=== PATIENT | female | born 1955 | race Caucasian/White ===

== ENCOUNTER 2017-07-28 11:48 | Emergency (ER) | payer SELFPAY ==
[2017-07-28] MEDS ORDERED: IOHEXOL 350 MG/ML 10 ML VIAL (for RAD DIAG) IVCONTRAST ONE (11:49)
[2017-07-28 12:02] VITALS: BP 125/80; PULSE 83; RESP 22; TEMP 97.6; O2SAT 95
[2017-07-28] MEDS ORDERED: RESP: ALBUTEROL 2.5 MG/IPRATROPIUM 0.5 MG NEB (SCH) INH ONE (12:15)
[2017-07-28 12:25] LABS: AUTOMATED NEUTROPHIL # 3.9 TH/MM3 (1.8-7.7); BASOPHIL # 0.1 TH/MM3 (0-0.2); BASOPHIL % 1.1 % (0.0-2.0); EOSINOPHIL # 0.2 TH/MM3 (0-0.4); EOSINOPHIL % 2.5 % (0.0-4.0); HEMATOCRIT 51.6 % (35.0-46.0); HEMOGLOBIN 17.7 GM/DL (11.6-15.3); LYMPH % 28.7 % (9.0-44.0); LYMPHOCYTE # 1.8 TH/MM3 (1.0-4.8); MEAN CELL VOLUME 101.3 FL (80.0-100.0); MEAN CORPUSCULAR HEMOGLOBIN 34.9 PG (27.0-34.0); MEAN CORPUSCULAR HGB CONC 34.4 % (32.0-36.0); MEAN PLATELET VOLUME 8.9 FL (7.0-11.0); MONO % 5.3 % (0.0-8.0); MONOCYTE # 0.3 TH/MM3 (0-0.9); NEUT % 62.4 % (16.0-70.0); PLATELET COUNT 197 TH/MM3 (150-450); RED BLOOD COUNT 5.09 MIL/MM3 (4.00-5.30); RED CELL DISTRIBUTION WIDTH 14.3 % (11.6-17.2); WHITE BLOOD COUNT 6.3 TH/MM3 (4.0-11.0)
[2017-07-28] MEDS ORDERED: methylPREDNISolone SOD SUCC 125 MG/2 ML VIAL IV PUSH ONE (12:30)
--- NOTE | 2017-07-28 12:32 | PD ---
HPI Chief Complaint: Respiratory Symptoms Time Seen by Provider: 12:00 Travel History International Travel<30 days: No Contact w/Intl Traveler<30days: No Traveled to known affect area: No History of Present Illness HPI 61-year-old female that presents to the ED for evaluation of shortness of breath for 2-3 months. Per patient she has not seen anybody for this. Per patient she has a hard time taking deep breath. Per patient go more severe today which is what prompted evaluation. Denies any medical history. She takes no medications currently. She does have a history of alcoholism and continues to drink. She denies any chest pain but states having some heartburn. She also states that she has a rash to her arms and legs that she attributes to bedbugs in the area where she lives. She does have significant rash noted but appears to be high be on the back, front and legs and arms. She does appear to be picking at her rashes and she has scratch dorsey all over her forearms and legs. She denies any history of COPD or asthma. She states that she does smoke. No history of medical issues. She does have a significant history of depression and psychiatric disease. Denies any chest pain. No abdominal pain. Nausea vomiting or diarrhea. No fevers chills or sweats. No cough. PFSH Past Medical History Anxiety: Yes Depression: Yes Diminished Hearing: No Psychiatric: Yes Past Surgical History Other Surgery: Yes (left arm sx) Social History Alcohol Use: Yes (4 pack of beer daily) Tobacco Use: Yes (1PPD) Substance Use: No (HX ETOH) Allergies-Medications (Allergen,Severity, Reaction): Coded Allergies: No Known Allergies (Unverified Allergy, Unknown, 07/28/17) Reported Meds & Prescriptions Reported Meds & Active Scripts Active Prednisone 20 Mg Tab 20 Mg PO BID 5 Days Proair Hfa 8.5 GM Inh (Albuterol Sulfate) 90 Mcg/Act Aer 2 Puff INH Q4-6H PRN 108 mcg/actuation Review of Systems Except as stated in HPI: all other systems reviewed are Neg Physical Exam Narrative GENERAL: Well-nourished, well-developed patient in no apparent distress. SKIN: Warm and dry. Patient has a hive looking rash on the back, flank, arms and legs. See with female nurse present at all times. Patient does have multiple scratch dorsey and abrasions from her picking at her skin more noticeable on the forearms bilaterally. HEAD: Atraumatic. Normocephalic. EYES: Pupils equal and round reactive to light and accommodation. No scleral icterus. No injection or drainage. ENT: No nasal bleeding or discharge. Mucous membranes pink and moist. TMs are clear with no sign of infection or perforation. No mastoid tenderness. Ear canals are intact bilaterally. No lymphadenopathy. Nostril mucosa is red and moist with clear mucus noted. No sinus tenderness to palpation noted. Tonsils are not enlarged or swollen. No ulvua Deviation. Tongue is midline. NECK: Trachea midline. No JVD. No meningeal signs noted CARDIOVASCULAR: Regular rate and rhythm. No murmurs, S3, S4. RESPIRATORY: No accessory muscle use. Clear to auscultation. Breath sounds equal bilaterally. GASTROINTESTINAL: Abdomen soft, non-tender, nondistended. Hepatic and splenic margins not palpable. Full range of motion of the upper and lower extremities bilaterally. 2+ pulses bilaterally. MUSCULOSKELETAL: Extremities without clubbing, cyanosis, or edema. No obvious deformities. Full range of motion of the upper and lower extremities bilaterally. 2+ pulses bilaterally. NEUROLOGICAL: Awake and alert. No obvious cranial nerve deficits. Motor grossly within normal limits. Five out of 5 muscle strength in the arms and legs. Normal speech. PSYCHIATRIC: Appropriate mood and affect; insight and judgment normal. Data Data Last Documented VS Vital Signs Date Time Temp Pulse Resp B/P (MAP) Pulse Ox O2 Delivery O2 Flow Rate FiO2 07/28/17 15:35 98.4 102 20 133/92 (106) 95 Room Air Orders Orders Complete Blood Count With Diff (07/28/17 12:08) Comprehensive Metabolic Panel (07/28/17 12:08) Ckmb (Isoenzyme) Profile (07/28/17 12:08) Troponin I (07/28/17 12:08) B-Type Natriuretic Peptide (07/28/17 12:08) Prothrombin Time / Inr (Pt) (07/28/17 12:08) Act Partial Throm Time (Ptt) (07/28/17 12:08) D-Dimer (07/28/17 12:08) Magnesium (Mg) (07/28/17 12:08) Thyroid Stimulating Hormone (07/28/17 12:08) Chest, Single Ap (07/28/17 12:08) Iv Access Insert/Monitor (07/28/17 12:08) Ecg Monitoring (07/28/17 12:08) Oximetry (07/28/17 12:08) Albuterol-Ipratropium Neb (Duoneb Neb) (07/28/17 12:15) Methylprednisolone So Succ Inj (Solumedr (07/28/17 12:30) Ct Pulmonary Angiogram (07/28/17 ) Ed Discharge Order (07/28/17 15:36) Labs Laboratory Tests Test 07/28/17 12:15 White Blood Count 6.3 TH/MM3 Red Blood Count 5.09 MIL/MM3 Hemoglobin 17.7 GM/DL Hematocrit 51.6 % Mean Corpuscular Volume 101.3 FL Mean Corpuscular Hemoglobin 34.9 PG Mean Corpuscular Hemoglobin Concent 34.4 % Red Cell Distribution Width 14.3 % Platelet Count 197 TH/MM3 Mean Platelet Volume 8.9 FL Neutrophils (%) (Auto) 62.4 % Lymphocytes (%) (Auto) 28.7 % Monocytes (%) (Auto) 5.3 % Eosinophils (%) (Auto) 2.5 % Basophils (%) (Auto) 1.1 % Neutrophils # (Auto) 3.9 TH/MM3 Lymphocytes # (Auto) 1.8 TH/MM3 Monocytes # (Auto) 0.3 TH/MM3 Eosinophils # (Auto) 0.2 TH/MM3 Basophils # (Auto) 0.1 TH/MM3 CBC Comment DIFF FINAL Differential Comment Prothrombin Time 10.7 SEC Prothromb Time International Ratio 1.1 RATIO Activated Partial Thromboplast Time 24.1 SEC D-Dimer Quantitative (PE/DVT) 1.01 MG/L FEU Blood Urea Nitrogen 5 MG/DL Creatinine 0.82 MG/DL Random Glucose 84 MG/DL Total Protein 8.1 GM/DL Albumin 3.2 GM/DL Calcium Level 8.5 MG/DL Magnesium Level 1.8 MG/DL Alkaline Phosphatase 111 U/L Aspartate Amino Transf (AST/SGOT) 157 U/L Alanine Aminotransferase (ALT/SGPT) 108 U/L Total Bilirubin 0.7 MG/DL Sodium Level 138 MEQ/L Potassium Level 3.2 MEQ/L Chloride Level 99 MEQ/L Carbon Dioxide Level 27.0 MEQ/L Anion Gap 12 MEQ/L Estimat Glomerular Filtration Rate 71 ML/MIN Total Creatine Kinase 85 U/L Troponin I LESS THAN 0.02 NG/ML B-Type Natriuretic Peptide 28 PG/ML Thyroid Stimulating Hormone 3rd Gen 1.790 uIU/ML MDM Medical Decision Making Medical Screen Exam Complete: Yes Emergency Medical Condition: Yes Medical Record Reviewed: Yes Interpretation(s) CBC & BMP Diagram 07/28/17 12:15 Total Protein 8.1, Albumin 3.2 L, Calcium Level 8.5, Magnesium Level 1.8, Alkaline Phosphatase 111, Aspartate Amino Transf (AST/SGOT) 157 H, Alanine Aminotransferase (ALT/SGPT) 108 H, Total Bilirubin 0.7 Last Impressions Chest X-Ray 07/28/17 1208 Signed Impressions: Service Date/Time: Friday, July 28, 2017 12:35 - CONCLUSION: Left basilar infiltrate. Tommie Hercules MD CT Angiography 07/28/17 0000 Signed Impressions: Service Date/Time: Friday, July 28, 2017 15:03 - CONCLUSION: 1. Mild biapical emphysematous changes. Lungs are otherwise clear. 2. No pulmonary embolus. 3. Moderate size hiatal hernia Riki Mack MD coags [facility] slightly elevated troponin and CKMB negative EKG shows sinus rhythm with no sign of acute ischemia or arrhythmia read by me and attending. Differential Diagnosis Shortness of breath versus pulmonary embolism versus COPD versus asthma versus pneumonia versus acute on chronic disease versus ACS versus alcoholism Narrative Course 61-year-old female that presents to the ED for evaluation of shortness of breath. Patient was properly examined and was found to have signs and symptoms of unclear etiology. Vitals and physical exam are reassuring. Patient appears to be in no acute distress. Unclear etiology of the shortness of breath. Patient herself is not the best historian. She has no medical history other than psychiatric. Suspect that psychiatric might have something to do with this but will do some blood work and imaging to rule out any sign of acute disease. Patient was given 1 breathing treatment here to see if it will help and she was also given Solu-Medrol she does have a rash on her arms and legs that appears to be highly likely from allergic reaction. No sign of anaphylaxis however. Labs and imaging showed what appears to be positive d- dimer. CTA was done. CTA was negative for acute disease alert and some emphysematous changes. Likely this is COPD. Will treat with inhaler. Given prednisone. Prescription for azithromycin to cover for infection. Told to follow-up closely with PCP. See ED if worsening symptoms. Case discussed with my attending Dr. Villagran who evaluated the patient agrees with plan. Diagnosis Primary Impression: Reactive airway disease Qualified Codes: J45.21 - Mild intermittent asthma with (acute) exacerbation Patient Instructions: General Instructions Additional Instructions: Take medications as prescribed. Follow-up with PCP. See ED if worsening symptoms. Med/Other Pt SpecificInfo: Prescription(s) given Scripts Azithromycin (Azithromycin) 250 Mg Tab 250 MG PO DIRECTED for Infection, #6 TAB 0 Refills Take 2 tabs (500 mg) on day 1 then 1 tab daily x 4 days. Prov: Nadia Villagran MD 07/28/17 Prednisone (Prednisone) 20 Mg Tab 20 MG PO BID for 5 Days, #10 TAB 0 Refills Prov: Nadia Villagran MD 07/28/17 Albuterol 8.5 GM Inh (Proair Hfa 8.5 GM Inh) 90 Mcg/Act Aer 2 PUFF INH Q4-6H Y for SHORTNESS OF BREATH, #1 INHALER 0 Refills 108 mcg/actuation Prov: Nadia Villagran MD 07/28/17 Disposition: 01 DISCHARGE HOME Condition: Stable Scar Lamb July 28, 2017 12:32
[2017-07-28 12:33] LABS: INTERNATIONAL NORMALIZED RATIO 1.1 RATIO; PROTHROMBIN TIME - PATIENT 10.7 SEC (9.8-11.6)
[2017-07-28 12:36] LABS: D-DIMER 1.01 MG/L FEU (0.00-0.50)
--- NOTE | 2017-07-28 12:48 | RADRPT ---
EXAM DATE/TIME: 07/28/2017 12:35 [facility] COMPARISON: CHEST SINGLE AP, August 16, 2015, 18:28. INDICATIONS : Shortness of breath. MEDICAL HISTORY : None. SURGICAL HISTORY : None. ENCOUNTER: Initial ACUITY: 1 day PAIN SCORE: 0/10 LOCATION: Bilateral chest FINDINGS: A single view of the chest demonstrates left basilar infiltrate. Right lung clear. The cardiomediasti nal contours are unremarkable. Osseous structures are intact. CONCLUSION: Left basilar infiltrate. Tommie Hercules MD on July 28, 2017 at 12:46 Board Certified Radiologist. This report was verified electronically.
[2017-07-28 12:56] LABS: ALBUMIN 3.2 GM/DL (3.4-5.0); ALKALINE PHOSPHATASE 111 U/L (45-117); ALT (GPT) 108 U/L (10-53); AST (GOT) 157 U/L (15-37); BLOOD UREA NITROGEN 5 MG/DL (7-18); CALCIUM 8.5 MG/DL (8.5-10.1); CHLORIDE 99 MEQ/L (98-107); CREATININE 0.82 MG/DL (0.50-1.00); GLOMERULAR FILTRATION RATE 71 ML/MIN (>89); GLUCOSE,RANDOM 84 MG/DL (74-106); MAGNESIUM 1.8 MG/DL (1.5-2.5); SODIUM (NA) 138 MEQ/L (136-145); TOTAL BILIRUBIN ADULT 0.7 MG/DL (0.2-1.0); TOTAL PROTEIN 8.1 GM/DL (6.4-8.2); TROPONIN I LESS THAN 0.02 NG/ML (0.02-0.05)
--- NOTE | 2017-07-28 15:27 | RADRPT ---
EXAM DATE/TIME: 07/28/2017 15:03 [facility] COMPARISON: No previous studies available for comparison. INDICATIONS : Shortness of breath for three month IV CONTRAST: 75 cc Omnipaque 350 (iohexol) IV RADIATION DOSE: 8.07 CTDIvol (mGy) MEDICAL HISTORY : None SURGICAL HISTORY : None. ENCOUNTER: Initial ACUITY: 3 months PAIN SCALE: 0/10 LOCATION: chest TECHNIQUE: Volumetric scanning of the chest was performed using a pulmonary embolism protocol MIP images were re constructed. Using automated exposure control and adjustment of the mA and/or kV according to patien t size, radiation dose was kept as low as reasonably achievable to obtain optimal diagnostic quality images. DICOM format image data is available electronically for review and comparison. Follow-up recommendations for detected pulmonary nodules are based at a minimum on nodule size and pa tient risk factors according to Fleischner Society Guidelines. FINDINGS: PULMONARY ARTERIES: No filling defects are seen in the pulmonary arteries through the segmental level. LUNGS: Mild biapical emphysematous changes. Lungs are otherwise clear. PLEURAE: There is no pleural thickening or pleural effusion. MEDIASTINUM: There is good visualization of the great vessels of the middle mediastinum. No evidence of mediastin al or hilar adenopathy/mass. Moderate-sized hiatal hernia. MUSCULOSKELETAL: Within normal limits for patient age. MISCELLANEOUS: The visualized upper abdominal organs demonstrate no acute abnormality. Diminished hepatic attenuatio n suggesting fatty infiltration. CONCLUSION: 1. Mild biapical emphysematous changes. Lungs are otherwise clear. 2. No pulmonary embolus. 3. Moderate size hiatal hernia Riki Mack MD on July 28, 2017 at 15:23 Board Certified Radiologist. This report was verified electronically.
[2017-07-28 15:35] VITALS: BP 133/92; PULSE 102; RESP 20; TEMP 98.4; O2SAT 95
[2017-07-28] MEDS ORDERED: ALBUAER3 INH (15:37)
[2017-07-28] MEDS ORDERED: PRED20 PO (15:37)
[2017-07-28] MEDS ORDERED: AZIT250T3 PO (15:38)
--- NOTE | 2017-07-28 16:06 | PD ---
Data Data Last Documented VS Vital Signs Date Time Temp Pulse Resp B/P (MAP) Pulse Ox O2 Delivery O2 Flow Rate FiO2 07/28/17 16:01 07/28/17 15:35 98.4 102 20 95 Room Air Orders Orders Complete Blood Count With Diff (07/28/17 12:08) Comprehensive Metabolic Panel (07/28/17 12:08) Ckmb (Isoenzyme) Profile (07/28/17 12:08) Troponin I (07/28/17 12:08) B-Type Natriuretic Peptide (07/28/17 12:08) Prothrombin Time / Inr (Pt) (07/28/17 12:08) Act Partial Throm Time (Ptt) (07/28/17 12:08) D-Dimer (07/28/17 12:08) Magnesium (Mg) (07/28/17 12:08) Thyroid Stimulating Hormone (07/28/17 12:08) Chest, Single Ap (07/28/17 12:08) Iv Access Insert/Monitor (07/28/17 12:08) Ecg Monitoring (07/28/17 12:08) Oximetry (07/28/17 12:08) Albuterol-Ipratropium Neb (Duoneb Neb) (07/28/17 12:15) Methylprednisolone So Succ Inj (Solumedr (07/28/17 12:30) Ct Pulmonary Angiogram (07/28/17 ) Ed Discharge Order (07/28/17 15:36) Iohexol 350 Inj (Omnipaque 350 Inj) (07/28/17 11:49) Labs Laboratory Tests Test 07/28/17 12:15 White Blood Count 6.3 TH/MM3 Red Blood Count 5.09 MIL/MM3 Hemoglobin 17.7 GM/DL Hematocrit 51.6 % Mean Corpuscular Volume 101.3 FL Mean Corpuscular Hemoglobin 34.9 PG Mean Corpuscular Hemoglobin Concent 34.4 % Red Cell Distribution Width 14.3 % Platelet Count 197 TH/MM3 Mean Platelet Volume 8.9 FL Neutrophils (%) (Auto) 62.4 % Lymphocytes (%) (Auto) 28.7 % Monocytes (%) (Auto) 5.3 % Eosinophils (%) (Auto) 2.5 % Basophils (%) (Auto) 1.1 % Neutrophils # (Auto) 3.9 TH/MM3 Lymphocytes # (Auto) 1.8 TH/MM3 Monocytes # (Auto) 0.3 TH/MM3 Eosinophils # (Auto) 0.2 TH/MM3 Basophils # (Auto) 0.1 TH/MM3 CBC Comment DIFF FINAL Differential Comment Prothrombin Time 10.7 SEC Prothromb Time International Ratio 1.1 RATIO Activated Partial Thromboplast Time 24.1 SEC D-Dimer Quantitative (PE/DVT) 1.01 MG/L FEU Blood Urea Nitrogen 5 MG/DL Creatinine 0.82 MG/DL Random Glucose 84 MG/DL Total Protein 8.1 GM/DL Albumin 3.2 GM/DL Calcium Level 8.5 MG/DL Magnesium Level 1.8 MG/DL Alkaline Phosphatase 111 U/L Aspartate Amino Transf (AST/SGOT) 157 U/L Alanine Aminotransferase (ALT/SGPT) 108 U/L Total Bilirubin 0.7 MG/DL Sodium Level 138 MEQ/L Potassium Level 3.2 MEQ/L Chloride Level 99 MEQ/L Carbon Dioxide Level 27.0 MEQ/L Anion Gap 12 MEQ/L Estimat Glomerular Filtration Rate 71 ML/MIN Total Creatine Kinase 85 U/L Troponin I LESS THAN 0.02 NG/ML B-Type Natriuretic Peptide 28 PG/ML Thyroid Stimulating Hormone 3rd Gen 1.790 uIU/ML MDM Supervised Visit with MINDI: Yes Narrative Course The history, exam, and medical decision-making in the associated midlevel provider note were completed with my assistance. I reviewed and agree with the findings presented. I attest that I had a [id number] encounter with the patient on the same day, and personally performed and documented my assessment and findings in the medical record. *My assessment and Findings: This is a 61-year-old female who presents to the emergency department with shortness of breath it has been going on for 2-3 months. She had some wheezing on exam initially. Chest x-ray demonstrates some hyperinflation and CD is suggestive of emphysema. I suspect this is the etiology of the patient's symptoms. She will be discharged on prednisone and was counseled on smoking cessation. Diagnosis Primary Impression: Reactive airway disease Qualified Codes: J45.21 - Mild intermittent asthma with (acute) exacerbation Referrals: Primary Care Physician call for appointment Patient Instructions: General Instructions, Reactive Airways Disease (ED) Departure Forms: Tests/Procedures Additional Instruction: Take medications as prescribed. Follow-up with PCP. See ED if worsening symptoms. Scripts Azithromycin (Azithromycin) 250 Mg Tab 250 MG PO DIRECTED for Infection, #6 TAB 0 Refills Take 2 tabs (500 mg) on day 1 then 1 tab daily x 4 days. Prov: Nadia Villagran MD 07/28/17 Prednisone (Prednisone) 20 Mg Tab 20 MG PO BID for 5 Days, #10 TAB 0 Refills Prov: Nadia Villagran MD 07/28/17 Albuterol 8.5 GM Inh (Proair Hfa 8.5 GM Inh) 90 Mcg/Act Aer 2 PUFF INH Q4-6H Y for SHORTNESS OF BREATH, #1 INHALER 0 Refills 108 mcg/actuation Prov: Nadia Villagran MD 07/28/17 Disposition: 01 DISCHARGE HOME Condition: Stable Nadia Villagran MD July 28, 2017 16:06
== END 2017-07-28 16:06 | disposition home or self-care (01) ==
LOC: NEPE 11:48
DX: J45.21 Mild intermittent asthma with (acute) exacerbation (principal); K44.9 Diaphragmatic hernia without obstruction or gangrene; F17.210 Nicotine dependence, cigarettes, uncomplicated; R21 Rash and other nonspecific skin eruption; F32.9 Major depressive disorder, single episode, unspecified
CPT/HCPCS: 71045; 71275; 80053; 82550; 83735; 83880; 84443; 84484; 85025; 85379; 85610; 85730; 94664; 96374; 99285; J2930; Q9967

== ENCOUNTER 2017-08-11 08:52 | Emergency (ER) | payer SELFPAY ==
[~2017-08-11] VITALS: Ht 165.1 cm; Wt 60.0 kg
[~2017-08-11 08:52] MED LIST: ALBUAER3 INH; AZIT250T3 PO; PRED20 PO
[2017-08-11 09:08] VITALS: BP 142/84; PULSE 93; RESP 20; TEMP 97.8; O2SAT 97
[2017-08-11] MEDS ORDERED: SODIUM CHLORIDE 0.9% FLUSH 10 ML FLUSH IVF PRN (09:45)
[2017-08-11] MEDS ORDERED: RESP: ALBUTEROL 2.5 MG/IPRATROPIUM 0.5 MG NEB (SCH) NEB ONE (09:45)
--- NOTE | 2017-08-11 10:07 | RADRPT ---
EXAM DATE: 08/11/2017 9:56 AM EDT AGE/SEX: 61 years / Female INDICATIONS: Chest pain. Abnormal EKG. CLINICAL DATA: This is the patient's initial encounter. Patient reports that signs and symptoms have been present for 1 day and indicates a pain score of 2/10. MEDICAL/SURGICAL HISTORY: . Smoker. None. COMPARISON: [facility], CHEST SINGLE AP, 07/28/2017. [facility], CT PULMONARY ANGIOGRAM, 07/28/2017. . FINDINGS: Frontal and lateral views of the chest demonstrate a normal-sized cardiac silhouette. There is inters titial prominence related to the emphysema. No effusion, consolidation, or pneumothorax is identified . The bones and soft tissues demonstrate no acute finding. There are degenerative changes of the thor acic spine. There is a stable small hiatal hernia. CONCLUSION: No acute cardiopulmonary abnormality is identified. Background lung findings indicate emphysema. Electronically signed by: Andi Plasencia MD 08/11/2017 10:06 AM EDT
[2017-08-11 10:55] LABS: AUTOMATED NEUTROPHIL # 4.9 TH/MM3 (1.8-7.7); BASOPHIL # 0.1 TH/MM3 (0-0.2); EOSINOPHIL # 0.1 TH/MM3 (0-0.4); EOSINOPHIL % 1.8 % (0.0-4.0); HEMATOCRIT 45.7 % (35.0-46.0); HEMOGLOBIN 15.6 GM/DL (11.6-15.3); LYMPH % 23.3 % (9.0-44.0); LYMPHOCYTE # 1.7 TH/MM3 (1.0-4.8); MEAN CELL VOLUME 104.3 FL (80.0-100.0); MEAN CORPUSCULAR HEMOGLOBIN 35.6 PG (27.0-34.0); MEAN CORPUSCULAR HGB CONC 34.2 % (32.0-36.0); MEAN PLATELET VOLUME 8.7 FL (7.0-11.0); MONO % 6.8 % (0.0-8.0); MONOCYTE # 0.5 TH/MM3 (0-0.9); NEUT % 67.1 % (16.0-70.0); PLATELET COUNT 163 TH/MM3 (150-450); RED BLOOD COUNT 4.39 MIL/MM3 (4.00-5.30); RED CELL DISTRIBUTION WIDTH 14.6 % (11.6-17.2); WHITE BLOOD COUNT 7.3 TH/MM3 (4.0-11.0)
[2017-08-11 11:28] LABS: ALT (GPT) 54 U/L (10-53); TOTAL BILIRUBIN ADULT 0.5 MG/DL (0.2-1.0); TROPONIN I LESS THAN 0.02 NG/ML (0.02-0.05)
[2017-08-11 11:34] LABS: ALBUMIN 2.8 GM/DL (3.4-5.0); ALKALINE PHOSPHATASE 70 U/L (45-117); AST (GOT) 93 U/L (15-37); BICARBONATE 25.7 MEQ/L (21.0-32.0); BLOOD UREA NITROGEN 10 MG/DL (7-18); CALCIUM 8.5 MG/DL (8.5-10.1); CHLORIDE 103 MEQ/L (98-107); CREATININE 0.73 MG/DL (0.50-1.00); GLOMERULAR FILTRATION RATE 81 ML/MIN (>89); GLUCOSE,RANDOM 90 MG/DL (74-106); MAGNESIUM 1.8 MG/DL (1.5-2.5); SODIUM (NA) 142 MEQ/L (136-145)
[2017-08-11] MEDS ORDERED: VENTAER INH (12:22)
--- NOTE | 2017-08-11 12:22 | PD ---
HPI Chief Complaint: Medical Clearance Time Seen by Provider: 09:24 Travel History International Travel<30 days: No Contact w/Intl Traveler<30days: No Traveled to known affect area: No History of Present Illness HPI Patient is a 61 year old female who comes in because she went to [facility] and they told her that her ECG was abnormal. She says she went because she needed a refill of her COPD medications. She denies any complaints currently. She says she occasionally gets some pain to the middle of her chest, but she does not have any now. She denies any cough or fever. She denies any vomiting. She is still smoking. Severity is mild. PFSH Past Medical History Anxiety: Yes Depression: Yes Diminished Hearing: No Medical other: Yes (emphysema) Psychiatric: Yes Tetanus Vaccination: Unknown Influenza Vaccination: No Past Surgical History Other Surgery: Yes (left arm sx) Social History Alcohol Use: Yes (4 pack of beer daily) Tobacco Use: Yes (1PPD) Substance Use: No Allergies-Medications (Allergen,Severity, Reaction): Coded Allergies: No Known Allergies (Unverified Allergy, Unknown, 08/11/17) Reported Meds & Prescriptions Reported Meds & Active Scripts Active Azithromycin 250 Mg Tab 250 Mg PO DIRECTED Take 2 tabs (500 mg) on day 1 then 1 tab daily x 4 days. Prednisone 20 Mg Tab 20 Mg PO BID 5 Days Proair Hfa 8.5 GM Inh (Albuterol Sulfate) 90 Mcg/Act Aer 2 Puff INH Q4-6H PRN 108 mcg/actuation Review of Systems Except as stated in HPI: all other systems reviewed are Neg General / Constitutional: No: Fever, Chills Eyes: No: Blurred Vision HENT: No: Headaches, Lightheadedness Respiratory: No: Cough Gastrointestinal: No: Nausea, Vomiting Musculoskeletal: No: Myalgias, Edema Skin: No Rash, No Change in Pigmentation Neurologic: No: Weakness, Dizziness Physical Exam Narrative GENERAL: Awake and alert, in no acute distress. SKIN: Focused skin assessment warm/dry. HEAD: Atraumatic. Normocephalic. EYES: Pupils equal and round. No scleral icterus. ENT: No nasal bleeding or discharge. Mucous membranes pink and moist. NECK: Trachea midline. No JVD. CARDIOVASCULAR: Regular rate and rhythm. No murmur appreciated. RESPIRATORY: No accessory muscle use. Decreased breath sounds throughout both lungs. Breath sounds equal bilaterally. GASTROINTESTINAL: Abdomen soft, non-tender, nondistended. MUSCULOSKELETAL: No obvious deformities. No clubbing. No cyanosis. No edema. NEUROLOGICAL: Awake and alert. No obvious cranial nerve deficits. Motor grossly within normal limits. Normal speech. PSYCHIATRIC: Appropriate mood and affect; insight and judgment normal. Data Data Last Documented VS Vital Signs Date Time Temp Pulse Resp B/P (MAP) Pulse Ox O2 Delivery O2 Flow Rate FiO2 08/11/17 09:08 97.8 93 20 142/84 (103) 97 Orders Orders B-Type Natriuretic Peptide (08/11/17 09:34) Ckmb (Isoenzyme) Profile (08/11/17 09:34) Complete Blood Count With Diff (08/11/17:34) Comprehensive Metabolic Panel (08/11/17 09:34) Magnesium (Mg) (08/11/17 09:34) Act Partial Throm Time (Ptt) (08/11/17 09:34) Troponin I (08/11/17 09:34) Ecg Monitoring (08/11/17 09:34) Bilateral Bp Monitoring (08/11/17 09:34) Iv Access Insert/Monitor (08/11/17 09:34) Oximetry (08/11/17 09:34) Oxygen Administration (08/11/17 09:34) Sodium Chloride 0.9% Flush (Ns Flush) (08/11/17 09:45) Chest, Pa & Lat (08/11/17 09:34) Albuterol-Ipratropium Neb (Duoneb Neb) (08/11/17 09:45) Electrocardiogram (08/11/17 07:25) Labs Laboratory Tests Test 08/11/17 09:40 08/11/17 10:30 08/11/17 10:50 B-Type Natriuretic Peptide 6 PG/ML White Blood Count 7.3 TH/MM3 Red Blood Count 4.39 MIL/MM3 Hemoglobin 15.6 GM/DL Hematocrit 45.7 % Mean Corpuscular Volume 104.3 FL Mean Corpuscular Hemoglobin 35.6 PG Mean Corpuscular Hemoglobin Concent 34.2 % Red Cell Distribution Width 14.6 % Platelet Count 163 TH/MM3 Mean Platelet Volume 8.7 FL Neutrophils (%) (Auto) 67.1 % Lymphocytes (%) (Auto) 23.3 % Monocytes (%) (Auto) 6.8 % Eosinophils (%) (Auto) 1.8 % Basophils (%) (Auto) 1.0 % Neutrophils # (Auto) 4.9 TH/MM3 Lymphocytes # (Auto) 1.7 TH/MM3 Monocytes # (Auto) 0.5 TH/MM3 Eosinophils # (Auto) 0.1 TH/MM3 Basophils # (Auto) 0.1 TH/MM3 CBC Comment DIFF FINAL Differential Comment Activated Partial Thromboplast Time 22.9 SEC Blood Urea Nitrogen 10 MG/DL Creatinine 0.73 MG/DL Random Glucose 90 MG/DL Total Protein 7.0 GM/DL Albumin 2.8 GM/DL Calcium Level 8.5 MG/DL Magnesium Level 1.8 MG/DL Alkaline Phosphatase 70 U/L Aspartate Amino Transf (AST/SGOT) 93 U/L Alanine Aminotransferase (ALT/SGPT) 54 U/L Total Bilirubin 0.5 MG/DL Sodium Level 142 MEQ/L Potassium Level 3.3 MEQ/L Chloride Level 103 MEQ/L Carbon Dioxide Level 25.7 MEQ/L Anion Gap 13 MEQ/L Estimat Glomerular Filtration Rate 81 ML/MIN Total Creatine Kinase 42 U/L Troponin I LESS THAN 0.02 NG/ML MDM Medical Decision Making Medical Screen Exam Complete: Yes Emergency Medical Condition: Yes Medical Record Reviewed: Yes Interpretation(s) ECG from [facility] showed sinus tach at 102 with short NM interval. Repeat ECG here shows sinus rhythm at 88, short NM interval, no ST elevation or depression. Differential Diagnosis COPD vs electrolyte abnormalities vs dehydration Narrative Course Patient is a 61 year old female who comes in due to an abnormal ECG at [facility]. She was trying to get refills of her COPD medications. Given a duoneb here. Labs show no acute abnormalities. ECG shows no evidence of ischemia, rate is controlled. Given a prescription for albuterol and advised to return to the [facility]. Last 24 hours Impressions Chest X-Ray 08/11/17 [id number] Signed Impressions: CONCLUSION: No acute cardiopulmonary abnormality is identified. Background lung findings in dicate emphysema. Diagnosis Primary Impression: COPD exacerbation Referrals: [facility] Patient Instructions: COPD (Chronic Obstructive Pulmonary Disease) (ED), General Instructions Additional Instructions: Use albuterol as needed for shortness of breath. Try to quit smoking. Follow up with [facility]. Return to the ED as needed for any worsening symptoms. Scripts Albuterol 18 GM Inh (Ventolin Hfa 18 GM Inh) 90 Mcg/Act Aer 2 PUFF INH Q4-6H Y for SHORTNESS OF BREATH, #1 INHALER 0 Refills Prov: Karmen Lowe MD 08/11/17 Disposition: 01 DISCHARGE HOME Condition: Stable Karmen Lowe MD Aug 11, 2017 12:22
--- NOTE | 2017-08-12 15:35 | EKG ---
Date Performed: 08/11/2017 Time Performed: 07:25:01 PTAGE: 61 years EKG: Sinus Rythm with short MS interval Non-specific T-wave Abnormality Borderline ECG Since the PREVIOUS TRACING , no significant change noted PREVIOUS TRACIN08/16/2015 @16.33 DOCTOR: Kim Bridges Interpretating Date/Time 08/12/2017 15:34:49
== END 2017-08-11 12:52 | disposition home or self-care (01) ==
LOC: NEPE 08:52
DX: J44.1 Chronic obstructive pulmonary disease with (acute) exacerbation (principal); R94.31 Abnormal electrocardiogram [ECG] [EKG]; F17.210 Nicotine dependence, cigarettes, uncomplicated
CPT/HCPCS: 71046; 80053; 82550; 83735; 83880; 84484; 85025; 85730; 93005; 94664